=== PATIENT | male | born 1960 | race Caucasian/White ===

== ENCOUNTER 2017-01-09 15:28 | Emergency (ER) | payer OTHER ==
[~2017-01-09 15:28] MED LIST: ALBUTEROL17 GM INH; NO MEDICATIONS; PREDNISONE PO; ZOFRANODT PO
[2017-01-09] MEDS ORDERED: ANTI-INFLAMATORY PO (15:32)
== END 2017-01-09 16:38 | disposition home or self-care (01) ==
LOC: SED 15:28
DX: H91.92 Unspecified hearing loss, left ear (principal)
CPT/HCPCS: 99283